=== PATIENT | female | born 1950 ===

== ENCOUNTER 2018-02-23 14:42 | Emergency (ER) | payer MEDICAID, MEDICARE, OTHER ==
[2018-02-23 14:50] VITALS: BP 131/81; PULSE 93; RESP 20; TEMP 97.5; O2SAT 98
--- NOTE | 2018-02-23 15:32 | C.PDOC ---
History Of Present Illness Patient is a 67 y/o female who presents to the ED with a complaint of new onset of left-sided back pain since this morning. Patient states she initially had pain in left lower leg and foot, but has since resolved. Admits to taking Motrin at 9am with moderate relief, but pain returned. Denies any trauma, weakness, numbness, or any other associated symptoms at this time. NEW ONSET L BACK PAIN SINCE THIS MORNING. PS INITIALLY W PAIN L LOWER LEG/FOOT, NOW RESOLVED. NEW ONSET L BACK PAIN TODAY. RELIEF W MOTRIN @ 0900 NOW RECUR. NO TRAUMA. NO WEAK/NUMB OTHER ASSOC SX EXAM NAD NONTOXIC BACK NO FOCAL TEND NO SPASM LIMITED FULL EXTENSION DUE TO PAIN NEURO INTACT EXT AROM WO DIFF REMAINDER NEG Time Seen by Provider: 02/23/18 15:21 Chief Complaint (Nursing): Back Pain History Per: Patient History/Exam Limitations: no limitations Onset/Duration Of Symptoms: Hrs (this morning) Current Symptoms Are (Timing): Still Present Associated Symptoms: denies: New Weakness, New Numbness Recent travel outside of the [place]: No Past Medical History Reviewed: Historical Data, Nursing Documentation, Vital Signs Vital Signs: Last Vital Signs Temp 97.5 F L 02/23/18 14:49 Pulse 93 H 02/23/18 14:49 Resp 20 02/23/18 14:49 BP 131/81 02/23/18 14:49 Pulse Ox 98 02/23/18 15:32 - Medical History PMH: HTN, Osteoporosis Surgical History: Cholecystectomy Family History: States: No Known Family Hx - Social History Hx Tobacco Use: No Hx Alcohol Use: No Hx Substance Use: No Review Of Systems Musculoskeletal: Positive for: Back Pain (left-sided) Neurological: Negative for: Weakness, Numbness Physical Exam - Physical Exam Appears: Non-toxic, No Acute Distress Head: Atraumatic, Normacephalic Oral Mucosa: Moist Back: Decreased ROM (limited full extension secondary to pain), No Muscle Spasm , Other (no focal tenderness) Extremity: Normal ROM (active ROM without difficulty) Neurological/Psych: Oriented x3, Normal Speech, Normal Cognition, Other (no focal deficits) ED Course And Treatment O2 Sat by Pulse Oximetry: 98 Progress Note: Decadron, neurontin, and toradol administered. Patient is resting comfortably and stable for discharge. Advised to follow up with PMD if symptoms persist. Disposition Counseled Patient/Family Regarding: Diagnosis, Need For Followup, Rx Given - Disposition Referrals: YOUR,PMD [Other] Disposition: HOME/ ROUTINE Disposition Time: 15:31 Condition: IMPROVED Prescriptions: Gabapentin [Neurontin] 300 mg PO TID #30 cap Instructions: Sciatica (DC) Forms: apomio (Hebrew) Print Language: TURKMEN - Clinical Impression Clinical Impression: Sciatica - Scribe Statement The provider has reviewed the documentation as recorded by the Scribe Jacinta Scott All medical record entries made by the Scribchyna were at my direction and personally dictated by me. I have reviewed the chart and agree that the record accurately reflects my personal performance of the history, physical exam, medical decision making, and the department course for this patient. I have also personally directed, reviewed, and agree with the discharge instructions and disposition.
== END 2018-02-23 16:06 | disposition home or self-care (01) ==
LOC: C.ER 14:42
DX: M54.30 Sciatica, unspecified side (principal)
CPT/HCPCS: 96372; 99283; J1885; J8540